=== PATIENT | male | born 1935 | race Caucasian/White ===

== ENCOUNTER 2017-09-27 16:08 | Emergency (ER) | payer OTHER ==
[~2017-09-27] VITALS: Ht 188 cm; Wt 82.0 kg
[2017-09-27 16:12] VITALS: BP 148/70; PULSE 74; RESP 18; TEMP 97.7; O2SAT 98
[2017-09-27] MEDS ORDERED: SIMV10TA PO (16:20)
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
[2017-09-27 18:02] VITALS: BP 148/79; PULSE 68; RESP 16; O2SAT 100
[2017-09-27] MEDS ORDERED: IBUP-232 PO (18:03)
[2017-09-27] MEDS ORDERED: AMOX500T PO (18:03)
== END 2017-09-27 18:34 | disposition home or self-care (01) ==
LOC: PHED 16:08
DX: S02.82XA Fracture of other specified skull and facial bones, left side, initial encounter for closed fracture (principal); H70.91 Unspecified mastoiditis, right ear; Z79.899 Other long term (current) drug therapy; V43.52XA Car driver injured in collision with other type car in traffic accident, initial encounter
CPT/HCPCS: 70450; 70486; 99284